=== PATIENT | male | born 1990 | race Two or more races ===

== ENCOUNTER 2018-05-08 07:33 | Outpatient (CLI) | payer OTHER | END 2018-05-08 08:49 | disposition home or self-care (01) | LOC: SONOGRAMA 07:33 | DX: E04.1 Nontoxic single thyroid nodule (principal) ==

== ENCOUNTER → 2023-02-07 | Emergency (ER) | payer OTHER ==
[~2023-02-07] VITALS: Ht 182.9 cm; Wt 77.1 kg
[~2023-02-07] MED LIST: JANUVIA100 MG PO; LEVO-T25 MCG PO
== END | disposition home or self-care (01) ==
LOC: ER 08:04
DX: S61.221A Laceration with foreign body of left index finger without damage to nail, initial encounter (principal); W45.8XXA Other foreign body or object entering through skin, initial encounter; Y93.89 Activity, other specified; Y92.89 Other specified places as the place of occurrence of the external cause; Z88.0 Allergy status to penicillin